=== PATIENT | male | born 2000 | race American Indian/Alaskan Native ===

== ENCOUNTER 2020-04-09 21:59 | Emergency (ER) | payer OTHER ==
[2020-04-09 22:38] VITALS: BP 121/71
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
== END 2020-04-10 00:08 | disposition home or self-care (01) ==
LOC: ED 21:59
DX: S43.52XA Sprain of left acromioclavicular joint, initial encounter (principal); S46.912A Strain of unspecified muscle, fascia and tendon at shoulder and upper arm level, left arm, initial encounter; Z79.899 Other long term (current) drug therapy; V49.49XA Driver injured in collision with other motor vehicles in traffic accident, initial encounter; Y93.89 Activity, other specified; Y92.410 Unspecified street and highway as the place of occurrence of the external cause; Y99.8 Other external cause status